=== PATIENT | female | born 1955 | race Caucasian/White ===

== ENCOUNTER 2023-06-28 20:40 | Observation (INO) | payer MEDICARE, SELFPAY ==
[2023-06-28] VITALS (15 sets, daily range): BP systolic 100–122; BP diastolic 56–72; PULSE 68–102; TEMP 36.7–37.3; O2SAT 83–96; BMI 22.7
--- NOTE | 2023-06-28 21:07 | ECG_ITS ---
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
--- NOTE | 2023-06-28 21:08 | XR_ITS ---
The [address] [address] Patient Name: ALIRIO TRIANA MRN: [id number] date: 1955 Sex: F Assigned Patient Location: ER Current Patient Location: ED.MAIN Accession/Order Number: [id number] Exam Date: 06/28/2023 21:15 Report Date: 06/28/2023 22:01 At the request of: CLOVIS VALADEZ Procedure: XR chest 1V SINGLE VIEW CHEST: 06/28/2023 9:15 PM EDT CLINICAL HISTORY:weak COMPARISONS: None. TECHNIQUE: Single frontal view of the chest, utilizing portable technique. Portable radiography should be considered a technically compromised study. Strongly consider dedicated PA and lateral chest radiographs, as clinically indicated. FINDINGS: LINES AND TUBES: Cardiac monitoring leads and wires overlie the patient. CARDIAC SILHOUETTE: Within normal limits. MEDIASTINAL AND HILAR CONTOUR: Within normal limits. PULMONARY PARENCHYMA AND PLEURA: Patient rotated to the right. Question of some subtle reticulonodular changes infiltrate left lower lobe versus artifact from rotation of patient. Correlate with clinical findings. Left upper lobe and right lung are clear and expanded. OSSEOUS STRUCTURES:Nothing significant. OTHER COMMENTS:Atherosclerotic calcifications of the aorta. XR/XR chest 1V IMPRESSION: Question of subtle early infiltrate at left lower lobe versus artifact due to patient being rotated to the right. Correlate symptomatically. Follow-up if clinically indicated. This report was generated with voice recognition software. Effort has been made to ensure accuracy of this report, however, occasional wording errors may persist. Please contact our office with any questions. Electronically authenticated by: CODEY NAVARRETE Date: 06/28/2023 22:01
--- NOTE | 2023-06-28 21:09 | ED.GENADUL1 ---
HPI HPI - General Adult General Chief complaint: Weakness Stated complaint: Weakness Time Seen by Provider: 06/28/23 20:46 Source: patient Mode of arrival: Wheelchair History of Present Illness HPI narrative: 68-year-old female presents for generalized weakness. This seems to have started within the last day. Family gives most of history. They report that she has some mild undiagnosed dementia and there concerned she might have a UTI which she has had before. She has been more disoriented and weak than typical. No fever. The patient herself does not seem to have any complaints of pain. She has not been vomiting or having diarrhea. Related Data Home Medications ?Medication ?Instructions ?Recorded ?Confirmed atorvastatin 10 mg tablet 10 mg PO QPM 06/28/23 06/28/23 fenofibrate 160 mg tablet 160 mg PO DAILY 06/28/23 06/28/23 memantine 10 mg tablet 10 mg PO BID 06/28/23 06/28/23 sertraline 50 mg tablet 50 mg PO DAILY 06/28/23 06/28/23 Allergies Allergy/AdvReac Type Severity Reaction Status Date / Time Penicillins Allergy Severe Verified 06/28/23 20:54 Opioid HPI Opioid Management Most Recent Opioid Data: No Data to Display Review of Systems ROS Narrative A ten point review of systems is negative except as noted above. Exam Narrative Exam Narrative: Nurses note and vital signs reviewed and patient is not hypoxic. General: The patient appears well and in no apparent distress. Patient is resting comfortably on cart. Skin: Warm, dry, no pallor noted. There is no rash noted. Head: Normocephalic, atraumatic Eye: Normal conjunctiva, no drainage Ears, Nose, Mouth, and Throat: oral mucosa is mildly dry. Nares patent. Cardiovascular: Regular Rate and Rhythm Respiratory: Patient is in no distress, no accessory muscle use, lungs are clear to auscultation, no wheezing, rales or rhonchi Back: non-tender GI: Soft and nontender Musculoskeletal: The patient has no evidence of calf tenderness, no pitting edema, symmetrical pulses noted bilaterally Neurological: Awake and alert. She does not know the year or where she is. She knows her name. Psychiatric: Cooperative Constitutional Vital Signs, click to edit/add: Last Vital Signs Temp 98.0 F 06/28/23 20:45 Pulse 100 H 06/28/23 20:45 Resp 16 06/28/23 20:45 BP 112/63 06/28/23 20:45 Pulse Ox 94 L 06/28/23 20:45 O2 Del Method Room Air 06/28/23 20:45 Course Vital Signs Vital signs: Vital Signs Temperature 98.0 F 06/28/23 20:45 Pulse Rate 100 H 06/28/23 20:45 Respiratory Rate 16 06/28/23 20:45 Blood Pressure 112/63 06/28/23 20:45 Pulse Oximetry 94 L 06/28/23 20:45 Oxygen Delivery Method Room Air 06/28/23 20:45 Temperature 98.0 F 06/28/23 20:45 Pulse Rate 100 H 06/28/23 20:45 Respiratory Rate 16 06/28/23 20:45 Blood Pressure 112/63 06/28/23 20:45 Pulse Oximetry 94 L 06/28/23 20:45 Oxygen Delivery Method Room Air 06/28/23 20:45 Medical Decision Making MDM Narrative Medical decision making narrative: The patient does not appear to have urinary tract infection. She is however quite weak and is unable to walk at this point. Chest x-ray shows questionable pneumonia per radiologist. Blood cultures were obtained as well as a urine culture and she was given IV Levaquin because of allergy. Findings are discussed with her family. Differential Diagnosis Differential Diagnosis: UTI, pneumonia, dehydration Lab Data Lab results reviewed: Yes I reviewed the patient's lab results Labs: Lab Results 06/28/23 06/28/23 Range/Units 21:00 21:44 WBC 8.6 (4.0-11.0) 10^3/uL RBC 5.00 (4.20-5.40) 10^6/uL Hgb 14.5 (12.0-16.0) g/dL Hct 44.4 (36.0-48.0) % MCV 88.8 (81.0-99.0) fL MCH 29.0 (26.7-34.0) pg MCHC 32.7 (29.9-35.2) g/dL RDW 15.4 H (11.0-15.0) % Plt Count 217 (150-450) 10^3/uL MPV 9.9 (9.5-13.5) fL Neut % (Auto) 76.1 H (43.0-75.0) % Lymph % (Auto) 12.3 L (20.5-60.0) % [place] % (Auto) 9.4 (1.7-12.0) % Eos % (Auto) 1.2 (0.9-7.0) % Baso % (Auto) 0.6 (0.2-2.0) % Neut # (Auto) 6.5 (1.4-6.5) 10^3/uL Lymph # (Auto) 1.1 L (1.2-3.8) 10^3/uL [place] # (Auto) 0.8 (0.3-0.8) 10^3/uL Eos # (Auto) 0.1 (0.0-0.7) 10^3/uL Baso # (Auto) 0.1 (0.0-0.1) 10^3/uL Abs Immat Gran (auto) 0.03 (0.00-0.03) 10^3/uL Imm/Tot Granulo (auto) 0.4 (0.0-0.5) % Sodium 138 (136-145) mmol/L Potassium 4.2 (3.5-5.1) mmol/L Chloride 103 (98-107) mmol/L Carbon Dioxide 24.2 (21.0-32.0) mmol/L Anion Gap 15.0 BUN 12.0 (7.0-18.0) mg/dL Creatinine 1.35 H (0.55-1.02) mg/dL Est GFR ( Amer) 47 L (>=60) Est GFR (Non-Af Amer) 39 L (>=60) BUN/Creatinine Ratio 8.9 Glucose 136 H (74-106) mg/dL Calcium 9.0 (8.5-10.1) mg/dL Urine Color Yellow (YELLOW) Urine Clarity Clear (CLEAR) Urine pH 7.0 (5.0-9.0) Ur Specific [place] 1.025 (1.005-1.025) Urine Protein Negative (NEG/TRACE) mg/dL Urine Glucose (UA) Negative (NEGATIVE) mg/dL Urine Ketones Negative (NEGATIVE) mg/dL Urine Occult Blood Small A (NEGATIVE) Urine Nitrite Negative (NEGATIVE) Urine Bilirubin Negative (NEGATIVE) Urine Urobilinogen 1.0 (0.2-1.0) EU/dL Ur Leukocyte Esterase Negative (NEGATIVE) Urine RBC 0-2 (0-2) #/HPF Urine WBC 2-5 A (NONE SEEN) #/HPF Ur Squamous Epith Cells None seen (NONE/RARE) #/LPF Urine Crystals None seen (None Seen) #/HPF Urine Bacteria Large A (NONE SEEN) #/HPF Urine Casts None seen (NONE SEEN) #/LPF Urine Mucus None seen (NONE SEEN) Ur Culture Indicated? Already ordered Influenza Type A Ag Negative Influenza Type B Ag Negative SARS-CoV-2 Ag (CV2AG) Negative (NEGATIVE) Imaging Data Chest x-ray: Radiologist's impression: ITS Impressions Chest X-Ray 06/28/23 21:08 IMPRESSION: Question of subtle early infiltrate at left lower lobe versus artifact due to patient being rotated to the right. Correlate symptomatically. Follow-up if clinically indicated. This report was generated with voice recognition software. Effort has been made to ensure accuracy of this report, however, occasional wording errors may persist. Please contact our office with any questions. Electronically authenticated by: CODEY NAVARRETE Date: 06/28/2023 22:01 ECG Data Attestation: I personally reviewed and interpreted this ECG as follows: (EKG on my interpretation shows sinus rhythm without acute change) Discharge Plan Discharge Chief Complaint: Weakness Time of Disposition Decision: 22:32 Prescriptions / Home Meds: No Action atorvastatin 10 mg tablet 10 mg PO QPM fenofibrate 160 mg tablet 160 mg PO DAILY memantine 10 mg tablet 10 mg PO BID sertraline 50 mg tablet 50 mg PO DAILY Print Language: Lithuanian
--- NOTE | 2023-06-28 21:22 | PC.NURSE ---
Patient was total lift from W/C to bed, could not barer weight
[2023-06-28 21:25] LABS: Basophils Absolute Auto 0.1 10^3/uL (0.0-0.1); Basophils Percent Auto 0.6 % (0.2-2.0); Bilirubin Urine NEGATIVE (NEGATIVE); Blood Urine SMALL (NEGATIVE); Clarity Urine CLEAR (CLEAR); Color Urine YELLOW (YELLOW); Eosinophils Absolute Auto 0.1 10^3/uL (0.0-0.7); Eosinophils Percent Auto 1.2 % (0.9-7.0); Glucose Urine UA NEGATIVE (NEGATIVE); Hematocrit 44.4 % (36.0-48.0); Hemoglobin 14.5 g/dL (12.0-16.0); Immature Granulocytes Abs Auto 0.03 10^3/uL (0.00-0.03); Immature Granulocytes Pct Auto 0.4 % (0.0-0.5); Ketones Urine NEGATIVE (NEGATIVE); Leukocyte Esterase Urine NEGATIVE (NEGATIVE); Lymphocytes Absolute Auto 1.1 10^3/uL (1.2-3.8); Lymphocytes Percent Auto 12.3 % (20.5-60.0); Mean Corpuscular HGB Conc 32.7 g/dL (29.9-35.2); Mean Corpuscular Volume 88.8 fL (81.0-99.0); Mean Platelet Volume 9.9 fL (9.5-13.5); Monocytes Absolute Auto 0.8 10^3/uL (0.3-0.8); Monocytes Percent Auto 9.4 % (1.7-12.0); Neutrophils Absolute Auto 6.5 10^3/uL (1.4-6.5); Neutrophils Percent Auto 76.1 % (43.0-75.0); Nitrite Urine NEGATIVE (NEGATIVE); Platelet Count 217 10^3/uL (150-450); Protein Urine NEGATIVE (NEG/TRACE); Red Cell Distribution Width 15.4 % (11.0-15.0); Specific Gravity Urine 1.025 (1.005-1.025); White Blood Count 8.6 10^3/uL (4.0-11.0)
[2023-06-28 21:31] LABS: Bacteria Urine LARGE #/HPF (NONE SEEN); Crystals Seen? None Seen #/HPF (None Seen); Mucus Urine NONE SEEN (NONE SEEN); RBC Urine 0-2 #/HPF (0-2); Squamous Epithelial Cell Urine NONE SEEN #/LPF (NONE/RARE)
[2023-06-28 21:32] LABS: Cast Seen? NONE SEEN #/LPF (NONE SEEN); Urine Culture Indicated ALREADY ORDERED
[2023-06-28 21:39] LABS: BUN Creatinine Ratio 8.9; Carbon Dioxide 24.2 mmol/L (21.0-32.0); Chloride 103 mmol/L (98-107); Estimated GFR (African America 47 (>=60); Estimated GFR (Non-African Ame 39 (>=60); Glucose 136 mg/dL (74-106); Potassium 4.2 mmol/L (3.5-5.1); Sodium 138 mmol/L (136-145)
[2023-06-28] MEDS: 0.9 % SODIUM CHLORIDE 1,000 ML 100 ML IV (21:45)
[2023-06-28 22:06] LABS: Influenza Virus A Antigen Negative; Influenza Virus B Antigen Negative; Internal Control Within Normal Limits; SARS-CoV-2 Ag NEGATIVE (NEGATIVE)
[2023-06-28] MEDS: LEVOFLOXACIN IN DEXTROSE 5 % 750 MG/150 ML IV.SOLN 100 MG IV (22:52)
[2023-06-29 00:34] VITALS: BP 116/69; PULSE 80; PULSE 90; TEMP 36.7; O2SAT 93; BMI 22.3
[2023-06-29 02:17] VITALS: BP 104/64; PULSE 89; TEMP 36.8; O2SAT 90
[2023-06-29 05:49] VITALS: BP 105/70; PULSE 89; TEMP 36.6; O2SAT 92
[2023-06-29 05:54] LABS: Basophils Percent Auto 0.5 % (0.2-2.0); Eosinophils Absolute Auto 0.1 10^3/uL (0.0-0.7); Hematocrit 38.5 % (36.0-48.0); Hemoglobin 12.2 g/dL (12.0-16.0); Immature Granulocytes Abs Auto 0.02 10^3/uL (0.00-0.03); Immature Granulocytes Pct Auto 0.3 % (0.0-0.5); Lymphocytes Absolute Auto 1.2 10^3/uL (1.2-3.8); Lymphocytes Percent Auto 20.9 % (20.5-60.0); Mean Corpuscular HGB Conc 31.7 g/dL (29.9-35.2); Mean Corpuscular Hemoglobin 28.7 pg (26.7-34.0); Mean Corpuscular Volume 90.6 fL (81.0-99.0); Mean Platelet Volume 9.6 fL (9.5-13.5); Monocytes Absolute Auto 0.7 10^3/uL (0.3-0.8); Monocytes Percent Auto 12.2 % (1.7-12.0); Neutrophils Absolute Auto 3.7 10^3/uL (1.4-6.5); Neutrophils Percent Auto 65.1 % (43.0-75.0); Platelet Count 190 10^3/uL (150-450); Red Blood Count 4.25 10^6/uL (4.20-5.40); Red Cell Distribution Width 15.7 % (11.0-15.0); White Blood Count 5.8 10^3/uL (4.0-11.0)
[2023-06-29 06:17] LABS: Alanine Aminotransferase 17 U/L (14-59); Albumin Globulin Ratio 0.8; Albumin Level 2.9 g/dL (3.4-5.0); Alkaline Phosphatase 89 U/L (46-116); Anion Gap 13.1; Aspartate Amino Transferase 22 U/L (15-37); BUN Creatinine Ratio 10.5; Bilirubin Total 0.4 mg/dL (0.2-1.0); Calcium 8.1 mg/dL (8.5-10.1); Carbon Dioxide 24.6 mmol/L (21.0-32.0); Chloride 105 mmol/L (98-107); Estimated GFR (African America 57 (>=60); Estimated GFR (Non-African Ame 47 (>=60); Globulin 3.6 g/dL; Glucose 108 mg/dL (74-106); Potassium 3.7 mmol/L (3.5-5.1); Sodium 139 mmol/L (136-145); Total Protein 6.5 g/dL (6.4-8.2)
[2023-06-29] MEDS: ENOXAPARIN SODIUM 40 MG/0.4 ML SYRINGE SUBQ (08:36)
[2023-06-29] MEDS: FENOFIBRATE 54 MG TABLET 162 MG PO (08:37)
[2023-06-29] MEDS: SERTRALINE HCL 50 MG TABLET PO (08:37)
[2023-06-29] MEDS: MEMANTINE HCL 28 MG CAP XR PO (08:37)
[2023-06-29] MEDS: ZINC OXIDE 30% CREAM 113.4 GM TUBE 1 APPLIC TOPICAL (09:12)
--- NOTE | 2023-06-29 11:42 | P.HP_ITS ---
HPI H&P: HPI History of Present Illness Chief complaint: Weakness Narrative: Patient with a history of dementia presented to the emergency room yesterday with increasing weakness and altered mental status. In ER chest x-ray suggested pneumonia, upon my review of the left I suspect she also may have a UTI. She does have a slight cough but not anything to be consistent with pneumonia. When I saw patient up on the medical surgical floor, she did have a slight cough with conversation. She was alert and oriented x 3. Her feels she is back to her baseline. Opioid HPI Opioid Management Most Recent Opioid Data: Last Pain Assessment 06/29/23 12:00 Last ORT Total Score 0 06/29/23 00:34 Last ORT Risk Category Low Risk 06/29/23 00:34 PFSH PFSH Social History Highest level of school completed/degree received: 11th grade Meds Home Medications and Allergies Home Medications ?Medication ?Instructions ?Recorded ?Confirmed ?Type atorvastatin 10 mg tablet 10 mg PO QPM 06/28/23 06/28/23 History fenofibrate 160 mg tablet 160 mg PO DAILY 06/28/23 06/28/23 History memantine 10 mg tablet 10 mg PO BID 06/28/23 06/28/23 History sertraline 50 mg tablet 50 mg PO DAILY 06/28/23 06/28/23 History levofloxacin 500 mg tablet 500 mg PO DAILY 10 days #10 tabs 06/29/23 Rx Allergies Allergy/AdvReac Type Severity Reaction Status Date / Time Penicillins Allergy Severe Verified 06/28/23 20:54 Exam Constitutional Vital Signs, click to edit/add: Last Vital Signs Temp 97.9 F 06/29/23 05:49 Pulse 89 06/29/23 05:49 Resp 17 06/29/23 05:49 BP 105/70 06/29/23 05:49 Pulse Ox 92 L 06/29/23 05:49 O2 Del Method Room Air 06/29/23 05:49 Documenting provider has reviewed patient's vital signs: yes Common normals: no apparent distress Chest Common normals: inspection of chest normal Respiratory Common normals: normal respiratory effort and no retractions Auscultation: rhonchi Cardio Common normals: regular rate and regular rhythm GI Common normals: Normal to inspection, nondistended, normoactive bowel sounds present, soft to palpation and non-tender Neuro Common normals: oriented x3 and CN's II-XII intact bilaterally Psych Common normals: mental status grossly normal and thought process normal Results Labs Labs: Short CBC 06/28/23 06/29/23 Range/Units 21:00 04:39 WBC 8.6 5.8 (4.0-11.0) 10^3/uL Hgb 14.5 12.2 (12.0-16.0) g/dL Hct 44.4 38.5 (36.0-48.0) % Plt Count 217 190 (150-450) 10^3/uL BMP 06/28/23 06/29/23 21:00 04:39 Sodium 138 139 Potassium 4.2 3.7 Chloride 103 105 Carbon Dioxide 24.2 24.6 BUN 12.0 12.0 Creatinine 1.35 H 1.14 H Glucose 136 H 108 H Calcium 9.0 8.1 L Liver Function 06/29/23 Range/Units 04:39 Total Bilirubin 0.4 (0.2-1.0) mg/dL AST 22 (15-37) U/L ALT 17 (14-59) U/L Alkaline Phosphatase 89 (46-116) U/L Albumin 2.9 L (3.4-5.0) g/dL Urine 06/28/23 Range/Units 21:00 Urine Color Yellow (YELLOW) Urine Clarity Clear (CLEAR) Urine pH 7.0 (5.0-9.0) Ur Specific [place] 1.025 (1.005-1.025) Urine Protein Negative (NEG/TRACE) mg/dL Urine Glucose (UA) Negative (NEGATIVE) mg/dL Assessment and Plan Assessment and Plan (1) Generalized weakness: (2) Pneumonia: Plan Sinus tachycardia with acute hypoxia with O2 saturation of 83% documented in the emergency room, altered mental status, left lower lobe pneumonia, white blood cell count with left shift consistent with acute bacterial process-patient was placed on IV antibiotics and aerosol treatments. Try to obtain sputum culture. Possible acute UTI with leuk grow urea-antibiotics as outlined above Altered mental status-this is likely secondary to the infections as outlined above, especially considering her baseline dementia. She does seem back to her normal self per her and daughters. At this point will have patient ambulate in the bright, she does that without any hypoxia and no change in altered mental status she will be discharged home in improving condition. Medications see list. Follow-up with her PCP within the next week. Moderate protein calorie malnutrition-diet supplement Urinary Catheter Management Urinary Catheter Management Straight: Cath placed during this visit: yes Urethral indwelling: No Insertion date: 06/28/23 Insertion time: 21:10
--- NOTE | 2023-06-29 11:43 | P.DS_ITS ---
DS: Providers Provider Date of admission: 06/29/23 00:16 Primary care physician: BRITTON ALMANZA Consults: 06/29/23 09:00 Occupational Therapy Eval and Treat Routine Reason for consultation: Only if needed for Rehab Has provider been notified: No Occupational Therapy Eval and Treat Routine Reason for consultation: Weakness Has provider been notified: No Physical Therapy Eval and Treat Routine Reason for consultation: Eval and Treat Has provider been notified: No Physical Therapy Eval and Treat Routine Reason for consultation: Weakness Has provider been notified: No DS: Diagnosis Discharge Diagnosis (1) Pneumonia: (2) Generalized weakness: Plan Sinus tachycardia with acute hypoxia with O2 saturation of 83% documented in the emergency room, altered mental status, left lower lobe pneumonia, white blood cell count with left shift consistent with acute bacterial process-patient was placed on IV antibiotics and aerosol treatments. Try to obtain sputum culture. Possible acute UTI with leuk grow urea-antibiotics as outlined above Altered mental status-this is likely secondary to the infections as outlined above, especially considering her baseline dementia. She does seem back to her normal self per her and daughters. At this point will have patient ambulate in the bright, she does that without any hypoxia and no change in altered mental status she will be discharged home in improving condition. Medications see list. Follow-up with her PCP within the next week. Moderate protein calorie malnutrition-diet supplement DS: Summary Hospital Course Hospital Course: Patient was admitted secondary to the altered mental status, this is likely related to possible left lower lobe pneumonia versus acute UTI versus both. Cultures are pending currently. Patient was given IV antibiotics and fluid resuscitation overnight. Family feels like she is back to her normal baseline. She does have some mild dementia. At this point she remains stable to be discharged home, this is assuming she can ambulate without hypoxia. Medications see list. Follow-up with her PCP within the next week. Time Spent with Patient Time attestation: Total time spent providing and/or coordinating discharge services: Time spent: less than 30 minutes Exam Constitutional Vital Signs, click to edit/add: Last Vital Signs Temp 97.9 F 06/29/23 05:49 Pulse 89 06/29/23 05:49 Resp 17 06/29/23 05:49 BP 105/70 06/29/23 05:49 Pulse Ox 92 L 06/29/23 05:49 O2 Del Method Room Air 06/29/23 05:49 Documenting provider has reviewed patient's vital signs: yes Common normals: no apparent distress Chest Common normals: inspection of chest normal Respiratory Common normals: normal respiratory effort and no retractions Auscultation: rhonchi Cardio Common normals: regular rate and regular rhythm GI Common normals: Normal to inspection, nondistended, normoactive bowel sounds present, soft to palpation and non-tender Neuro Common normals: oriented x3 and CN's II-XII intact bilaterally Psych Common normals: mental status grossly normal and thought process normal DS: Data Data Completed and Pending Labs on day of discharge: Labs from last 24 hours 06/29/23 06/28/23 06/28/23 04:39 21:44 21:00 WBC 5.8 8.6 RBC 4.25 5.00 Hgb 12.2 14.5 Hct 38.5 44.4 MCV 90.6 88.8 MCH 28.7 29.0 MCHC 31.7 32.7 RDW 15.7 H 15.4 H Plt Count 190 217 MPV 9.6 9.9 Neut % (Auto) 65.1 76.1 H Lymph % (Auto) 20.9 12.3 L [place] % (Auto) 12.2 H 9.4 Eos % (Auto) 1.0 1.2 Baso % (Auto) 0.5 0.6 Neut # (Auto) 3.7 6.5 Lymph # (Auto) 1.2 1.1 L [place] # (Auto) 0.7 0.8 Eos # (Auto) 0.1 0.1 Baso # (Auto) 0.0 0.1 Abs Immat Gran (auto) 0.02 0.03 Imm/Tot Granulo (auto) 0.3 0.4 Sodium 139 138 Potassium 3.7 4.2 Chloride 105 103 Carbon Dioxide 24.6 24.2 Anion Gap 13.1 15.0 BUN 12.0 12.0 Creatinine 1.14 H 1.35 H Est GFR ( Amer) 57 L 47 L Est GFR (Non-Af Amer) 47 L 39 L BUN/Creatinine Ratio 10.5 8.9 Glucose 108 H 136 H Calcium 8.1 L 9.0 Total Bilirubin 0.4 AST 22 ALT 17 Alkaline Phosphatase 89 Total Protein 6.5 Albumin 2.9 L Globulin 3.6 Albumin/Globulin Ratio 0.8 Urine Color Yellow Urine Clarity Clear Urine pH 7.0 Ur Specific [place] 1.025 Urine Protein Negative Urine Glucose (UA) Negative Urine Ketones Negative Urine Occult Blood Small A Urine Nitrite Negative Urine Bilirubin Negative Urine Urobilinogen 1.0 Ur Leukocyte Esterase Negative Urine RBC 0-2 Urine WBC 2-5 A Ur Squamous Epith Cells None seen Urine Crystals None seen Urine Bacteria Large A Urine Casts None seen Urine Mucus None seen Ur Culture Indicated? Already ordered Influenza Type A Ag Negative Influenza Type B Ag Negative SARS-CoV-2 Ag (CV2AG) Negative Discharge Plan Discharge Disposition: Home, Self-Care Condition: Good Discharge Medications: New levofloxacin 500 mg tablet 500 mg PO DAILY 10 Days Qty: 10 0RF Continued atorvastatin 10 mg tablet 10 mg PO QPM fenofibrate 160 mg tablet 160 mg PO DAILY memantine 10 mg tablet 10 mg PO BID sertraline 50 mg tablet 50 mg PO DAILY Activity: increase activity as tolerated Diet: advance to your usual diet Print Language: Moroccan Patient Instructions: Levofloxacin (By mouth) Forms: Portal Instructions Follow Up Appointments: Call family Dr for follow up in 1 week. Discharge Date/Time: 06/29/23 13:00
[2023-06-29 11:44] VITALS: BP 100/50; PULSE 91; TEMP 36.6; O2SAT 90
[2023-06-29 11:52] VITALS: O2SAT 93
--- NOTE | 2023-06-29 12:00 | PC.NURSE ---
Journeyman Pipe Fitter called in prescription to primary preferred pharmacy [facility]. This is also changed in pt.'s chart to reflect preferred pharmacy. and primary nurse is aware
--- NOTE | 2023-06-29 12:49 | PC.NURSE ---
ambulated pt in hallway, spo2 90-92% on room air. family present.
--- NOTE | 2023-06-30 15:23 | CM.DCFOLLOWU ---
1st attempt discharge follow up call, no answer 06/30/23
--- NOTE | 2023-07-01 16:09 | CM.DCFOLLOWU ---
2nd attempt discharge follow up call, no answer 07/01/23
--- NOTE | 2023-07-02 16:10 | CM.DCFOLLOWU ---
Person spoke with: patient How are you feeling? well How is your pain? no pain Did you understand your discharge instructions? yes Do you have any questions about your discharge instructions? no Were you given any prescriptions at discharge? yes Were you able to get your prescriptions filled? yes Do you understand how to take your medications as ordered? yes Do you have any questions about your follow up appointment and do you plan to keep your follow up appointment? no question, has follow up apt tomorrow 07/03/23 Is there anything else that you would like to discuss? no Questions/Comments/Concerns/Other: N/A
== END 2023-06-29 13:00 | disposition home or self-care (01) ==
LOC: ER 22:32 → MS 06-29 00:19
PROVIDERS: Registered Nurse; Admitting Provider Family Medicine; Emergency Provider Emergency Medicine; PCP Family Medicine; Visit Provider Family Medicine
DX: J18.9 Pneumonia, unspecified organism (principal); N39.0 Urinary tract infection, site not specified; B96.1 Klebsiella pneumoniae [K. pneumoniae] as the cause of diseases classified elsewhere; R00.0 Tachycardia, unspecified; R09.02 Hypoxemia; R41.82 Altered mental status, unspecified; F03.90 Unspecified dementia, unspecified severity, without behavioral disturbance, psychotic disturbance, mood disturbance, and anxiety; E44.0 Moderate protein-calorie malnutrition; Z68.22 Body mass index [BMI] 22.0-22.9, adult; Z20.822 Contact with and (suspected) exposure to COVID-19; Z79.899 Other long term (current) drug therapy
CPT/HCPCS: 36415; 71045; 80048; 80053; 81001; 85025; 87040; 87086; 87150; 87186; 87804; 87811; 93005; 94667; 96365; 96366; 96372; 99285; G0378